=== PATIENT | male | born 2005 | race Two or more races ===

== ENCOUNTER 2025-03-29 20:00 | Observation (INO) ==
--- NOTE | 2025-03-29 20:24 | ED Physician Documentation ---
History of Present Illness Stated complaint Stated Complaint: ABD PX Chief complaint Chief Complaint: Abd Pain History obtained from History obtained from: Patient History of Present Illness Timing: Prior to arrival Additonal information Additional information: Patient 19-year-old male presenting to the emergency department with right lower quadrant pain symptoms started yesterday after leaving work he notes persistent nausea today no history of abdominal surgeries no vomiting he took ibuprofen with no relief he has not had anything to eat today due to persistent pain no testicular pain no pain radiating to his back no urinary symptoms no diarrhea or vomiting. No fever or chills. Meds/Allgy Home Medications Ambulatory Orders Medication Instructions Recorded Confirmed No Known Home Medications 03/29/25 08/0 01/16 Allergies Allergies Allergy/AdvReac Type Severity Reaction Status Date / Time No Known Drug Allergies Allergy Verified 03/29/25 20:11 PFSH Active Problems All Active Problems (Updated 03/29/25 @ 22:18 by Brenda Diallo PA-C) Abdominal pain (Acute) Medical History Medical History (Updated 03/29/25 @ 22:18 by Brenda Diallo PA-C) No pertinent past medical history Social History Social History Relationship: Do you feel safe in your home environment?: Yes Suffered physical, verbal, emotional, or financial abuse?: No Are you sexually active?: No Exam Exam Vital Signs: Vital Signs x48h Temp Pulse Resp BP Pulse Ox 03/29/25 20:09 36.5 C 65 18 107/68 98 Constitutional normal general appearance HENMT normocephalic and head/scalp atraumatic Eyes PERRL, EOMs intact bilaterally and conjunctivae normal Neck/C-Spine visual inspection normal Lymph no lymphadenopathy noted Chest inspection of chest normal Respiratory breath sounds equal bilaterally, normal respiratory effort and clear to auscultation bilaterally Cardiovascular normal heart rate noted, regular rhythm noted, no gallop and no rub Gastrointestinal Reproducible right lower quadrant tenderness. No murphys sign. Genitourinary no CVA tenderness, testes normal and scrotum normal Results Vitals Vitals: Vital Signs - 24 hr 03/29/25 20:09 03/29/25 20:58 03/29/25 22:03 Temperature 36.5 C Temperature Source Temporal Artery Scan Pulse Rate 65 Respiratory Rate 18 Blood Pressure 107/68 O2 Saturation 98 O2 Source Room air Pain Intensity 5 8 4 Oxygen O2 Source Room air Labs Labs: Laboratory Tests 03/29/25 20:22 WBC 6.3 RBC 5.01 Hgb 14.7 Hct 43.5 MCV 86.8 MCH 29.3 MCHC 33.8 RDW 11.4 L Plt Count 277 MPV 9.4 Neut # (Auto) 2.5 Lymph # (Auto) 2.7 Lander # (Auto) 0.7 Eos # (Auto) 0.4 Baso # (Auto) 0.0 Absolute Nucleated RBC 0.00 Nucleated RBC % 0.0 Sodium 137 Potassium 3.8 Chloride 102 Carbon Dioxide 29 Anion Gap 6.0 BUN 18 Creatinine 1.1 Estimated GFR (MDRD) 85 L Glucose 120 H Calcium 9.5 Total Bilirubin 0.5 AST 27 ALT 77 H Alkaline Phosphatase 83 Total Protein 7.2 Albumin 4.5 Globulin 2.7 Albumin/Globulin Ratio 1.7 Lipase 24 PD Medical Decision Making ED course Complexity details: reviewed old records and reviewed results ED course: Patient is a 19-year-old male presenting to the emergency department with right lower quadrant pain symptoms been going on x 1 day he reports nausea but no vomiting he took ibuprofen with no relief no history of abdominal surgeries vital stable here in the ED he is afebrile nontachycardic normotensive abdomen is tender in that right lower quadrant with no reproducible CVA tenderness. Labs here in the emergency department show no leukocytosis CMP is unremarkable UA shows no signs of UTI slight elevation in his ALT at 77 but AST is all within normal range lipase within normal range will obtain CT abdomen given specific right sided quadrant tenderness but without vomiting or elevated leukocytosis I do have lower suspicion of acute appendicitis. Patient is agreeable with this plan pending urine analysis as patient was unable to give 1 here in the ED at this time fluids Toradol and Zofran were given to patient for symptom control here in the ED. Patient signed out to Dr. Minaya here in the emergency department for right lower quadrant pain. Discharge Plan Discharge Condition: Good Clinical Impression: Abdominal pain Prescriptions: No Action No Known Home Medications Print Language: Bulgarian Stand Alone Forms: PCP List
[2025-03-29 20:29] LABS: HCT - HEMATOCRIT 43.5 % (42.0-52.0); HGB - HEMOGLOBIN 14.7 g/dL (14.0-18.0); MEAN PLATELET VOLUME 9.4 fL (7.4-11.4); NRBC ABSOLUTE COUNT (AUTO) 0.00 x10^3/uL; NUCLEATED RED BLOOD CELLS AUTO 0.0 /100WBC; PLT - PLATELET COUNT 277 10^3/uL (130-450); RED CELL DISTRIBUTION WIDTH 11.4 % (12.0-15.0)
[2025-03-29 20:44] LABS: ALT ALANINE AMINOTRANSFERASE 77.0 IU/L (10-60); AST ASPARTATE AMINOTRANSFERASE 27.0 IU/L (10-42); BUN - BLOOD UREA NITROGEN 18.0 mg/dL (6-20); CARBON DIOXIDE - CO2 29.0 mmol/L (21-32); CREATININE 1.1 mg/dL (0.6-1.3); GFR - MDRD 85.0 (>89)
[2025-03-29] MEDS: KETOROLAC 15 MG/ML VIAL IM STA (20:58)
[2025-03-29] MEDS: ONDANSETRON 4 MG/2 ML VIAL IVP STA (20:58)
[2025-03-29] MEDS: SODIUM CHLORIDE 0.9% 1,000 ML IV STA (22:12)
--- NOTE | 2025-03-29 22:15 | CT Report ---
PROCEDURE: CT Abdomen/Pelvis W INDICATIONS: abdominal pain in RLQ CONTRAST: 100cc [id number] TECHNIQUE: After the administration of intravenous contrast, a CT scan of the abdomen and pelvis was performed. Images were recorded and evaluated at appropriate window settings. Reformats: coronal and sagittal. For radiation dose reduction, the following was used: automated exposure control, adjustment of mA and/or kV according to patient size. COMPARISON: None. FINDINGS: Image quality: Diagnostic. Lower chest: Unremarkable. Liver: No solid mass. Gallbladder: Contracted. No calcified stones. Biliary tree: No intrahepatic or extrahepatic dilation, accounting for age. Spleen: No splenomegaly. Pancreas: No pancreatic ductal dilation. Adrenals: No adrenal nodule. Kidneys and ureters: No hydronephrosis. No renal cystic lesion which requires follow up. No solid mass. Stomach, bowel and peritoneum: No gastric or small bowel dilation. No abnormal wall thickening. No pathologic free fluid. The appendix is fluid-filled with mild wall thickening measuring at the upper limits of normal in size, 7 to 8 mm. No significant surrounding inflammation is seen. Lymph nodes: No central or retroperitoneal adenopathy. Vessels: No infrarenal aortic aneurysm. Patent portal vein. PELVIS Reproductive organs: Unremarkable. Bladder: No abnormal wall thickening. Pelvic lymph nodes: No pelvic adenopathy by size criteria. Bones: No aggressive osseous abnormality. Other: No significant ventral or inguinal hernia. IMPRESSION: Appendix is fluid-filled with mild wall thickening and measuring at the upper limits of normal in size, 7-8 mm. No significant surrounding inflammation. Early acute appendicitis is in the differential. Reviewed by: Joel Narvaez MD on 03/29/2025 10:14 PM PDT Approved by: Joel Narvaez MD on 03/29/2025 10:14 PM PDT Station ID: [id number]
[2025-03-29] MEDS ORDERED: ONDANSETRON 4 MG/2 ML VIAL IVP PRN (23:38)
[2025-03-29] MEDS ORDERED: ONDANSETRON ODT 4 MG TABLET TL PRN (23:38)
[2025-03-30] MEDS ORDERED: KETOROLAC 15 MG/ML VIAL IVP PRN (00:39)
[2025-03-30] MEDS: HYDROmorphone 0.5 MG/0.5 ML SYRINGE IVP PRN (00:55)
[2025-03-30] MEDS: SODIUM CHLORIDE 0.9% 1,000 ML IV SCH (00:56)
[2025-03-30] MEDS: ACETAMINOPHEN 325 MG TABLET PO PRN (01:32)
--- NOTE | 2025-03-30 06:52 | HISTORY & PHYSICAL EXAMINATION ---
Chief Complaint Chief Complaint Chief Complaint: I'm having pain History of Present Illness Admitted From Admitted From:: ED History Obtained From Records Reviewed: yes History obtained from: patient, ED provider, patient's History of Present Illness HPI Comment/Other: Patient reports abdominal pain off and on since January. He began having pain Friday afternoon at about 2:00. His pain has been located in his right lower quadrant and has been associated with some nausea but no vomiting. The patient tried to treat his pain with ibuprofen and when it did not improve yesterday, he came in to the emergency department. There, workup revealed normal labs and a CT that showed "possible early appendicitis". The patient continued to have abdominal pain and was admitted to the floor for possible surgery this morning. On my evaluation of the patient this morning, he is resting comfortably. Upon awakening, the patient denies pain. He denies any nausea. He denies any fevers or chills. He has no family history of colon cancer or inflammatory bowel disease. Colonoscopy Questionnaire In the last 30 days have you experienced these symptoms? PFSH Active Problems All Active Problems Right lower quadrant pain (Acute) Acute appendicitis (Acute) Medical History Medical History No pertinent past medical history Social History Social History Smoking Status: Former smoker If you are a former smoker, when did you quit? (Date/Year): 2022 Second hand tobacco smoke exposure: Yes Do you dip or chew tobacco?: No Do you vape?: No Relationship: Level: Independent Do you feel safe in your home environment?: Yes Suffered physical, verbal, emotional, or financial abuse?: No Are you sexually active?: No Meds/Allgy Home Medications Ambulatory Orders Medication Instructions Recorded Confirmed No Known Home Medications 03/29/2501/16 Allergies Allergies Allergy/AdvReac Type Severity Reaction Status Date / Time No Known Drug Allergies Allergy Verified 03/29/25 20:11 Results Lab Results 03/29/25 20:22 03/29/25 20:22 Other Lab Results: Lab Results x24hrs 03/29/25 Range/Units 20:22 WBC 6.3 (4.8-10.8) x10^3/uL RBC 5.01 (4.70-6.10) 10^6/uL Hgb 14.7 (14.0-18.0) g/dL Hct 43.5 (42.0-52.0) % MCV 86.8 (80.0-94.0) fL MCH 29.3 (27.0-31.0) pg MCHC 33.8 (32.0-36.0) g/dL RDW 11.4 L (12.0-15.0) % Plt Count 277 (130-450) 10^3/uL MPV 9.4 (7.4-11.4) fL Neut # (Auto) 2.5 (1.5-6.6) 10^3/uL Lymph # (Auto) 2.7 (1.5-3.5) 10^3/uL Coles # (Auto) 0.7 (0.0-1.0) 10^3/uL Eos # (Auto) 0.4 (0.0-0.7) 10^3/uL Baso # (Auto) 0.0 (0.0-0.1) 10^3/uL Absolute Nucleated RBC 0.00 x10^3/uL Nucleated RBC % 0.0 /100WBC Sodium 137 (135-145) mmol/L Potassium 3.8 (3.5-4.5) mmol/L Chloride 102 (101-111) mmol/L Carbon Dioxide 29 (21-32) mmol/L Anion Gap 6.0 (6-13) BUN 18 (6-20) mg/dL Creatinine 1.1 (0.6-1.3) mg/dL Estimated GFR (MDRD) 85 L (>89) Glucose 120 H (74-104) mg/dL Calcium 9.5 (8.5-10.3) mg/dL Total Bilirubin 0.5 (0.2-1.0) mg/dL AST 27 (10-42) IU/L ALT 77 H (10-60) IU/L Alkaline Phosphatase 83 (42-121) IU/L Total Protein 7.2 (6.4-8.9) g/dL Albumin 4.5 (3.2-5.5) g/dL Globulin 2.7 (2.1-4.2) g/dL Albumin/Globulin Ratio 1.7 (1.0-2.2) Lipase 24 (11-82) U/L Diagnostic Imaging Results Diagnostic Imaging Results: positive Final report reviewed and Read independently Diagnostic Imaging Results Comments: CT demonstrates an 8 mm, fluid-filled appendix without surrounding fat stranding, periappendiceal fluid, or free air. Review of Systems Status of ROS: 10 or more systems reviewed and unremarkable except as noted in history and below Exam Exam Vital Signs: Vital Signs x48h Temp Pulse Pulse Resp BP BP Pulse Ox 03/30/25 03:39 98.1 F 68 17 103/65 97 03/30/25 00:33 99.1 F 82 20 128/78 99 GEN: No acute distress, appears stated age, alert and oriented HEENT: NCAT, MMM, EOMI NEURO: CN II-XII grossly intact, no obvious focal deficits CV: RRR PULM: Nonlabored, on room air ABD: soft, non tender to superficial or deep palpation in all quadrants, negative Rovsing sign, no significant tenderness in the right lower quadrant, no rebound or guarding CIRCULATORY: no clubbing, cyanosis, or edema SKIN: no lesions appreciated LYMPH: no obvious lymphadenopathy MSK: 4/4 strength in all extremities PSYCH: Affect is appropriate Impression/Plan Problem List (1) Right lower quadrant pain: Plan: This is a 19-year-old male who presented to the emergency department with right lower quadrant abdominal pain. The patient's history is some elements concerning for appendicitis and others like the duration of his pain that are less concerning for appendicitis. His laboratory studies are reassuring and his imaging is equivocal. This morning, the patient's exam is very reassuring. I discussed the natural history of acute appendicitis with the patient. We also discussed the risks, benefits, and alternatives of laparoscopic appendectomy including the the use of antibiotics alone. In shared decision making we discussed options including proceeding with surgery at this time or repeating his labs and following his exam throughout the morning. The patient would like to avoid surgery if possible. I have ordered a repeat CBC and will reexamine the patient in a couple of hours. If the patient's labs are normal, I will give him a clear liquid diet.
[2025-03-30 07:44] LABS: HCT - HEMATOCRIT 38.5 % (42.0-52.0); HGB - HEMOGLOBIN 13.1 g/dL (14.0-18.0); MEAN PLATELET VOLUME 9.6 fL (7.4-11.4); NRBC ABSOLUTE COUNT (AUTO) 0.00 x10^3/uL; NUCLEATED RED BLOOD CELLS AUTO 0.0 /100WBC; PLT - PLATELET COUNT 231 10^3/uL (130-450); RED CELL DISTRIBUTION WIDTH 11.5 % (12.0-15.0)
[2025-03-30 11:58] VITALS: BP 102/40; TEMP 98.2; O2SAT 98
--- NOTE | 2025-04-28 08:06 | ED Physician Documentation ---
ED Addendum Addendum Addendum: Patient was signed out to me at change of shift, pending results of CT abdomen pelvis after presenting with right lower quadrant pain to the emergency department. CT was done and reported by radiologist to show findings concerning for early appendicitis. I discussed case with Dr. Fernandez who stated she would come and see the patient in the emergency department. I discussed with the patient The findings, the plan, and that the patient will most likely have an appendectomy. Final impression: 1. Right lower quadrant abdominal pain, likely early appendicitis Disposition: Admit to same-day surgery in serious condition. Discharge Plan Discharge Patient Disposition: [facility] DC/Xfer Condition: Stable Clinical Impression: Appendicitis Interventions: ED Admission Assessment Last Done: 03/30/25 00:33 Vitals documented within 30 minutes of discharge?: Yes
== END 2025-03-30 12:00 | disposition home or self-care (01) ==
LOC: ED 20:00 → SDS 23:30 → MS2 23:30 → SDS 23:59 → MS2 03-30 00:34
PROVIDERS: ADMIT Surgery; ATTEND Surgery
DX: R74.01 Elevation of levels of liver transaminase levels; Z87.891 Personal history of nicotine dependence; K35.80 Unspecified acute appendicitis